=== PATIENT | male | born 1945 | race Caucasian/White ===

== ENCOUNTER → 2017-09-09 09:08 | Outpatient (CLI) | payer OTHER, SELFPAY ==
[2017-09-09 11:32] LABS: Amphetamine Urine VISTA NEGATIVE (<1000 ng/mL); Barbiturate Urine VISTA NEGATIVE (< 200 ng/mL); Benzodiazepine Urine VISTA POSITIVE (< 200 ng/mL); Cocaine Urine VISTA NEGATIVE (< 300 ng/mL); Ecstacy Urine VISTA POSITIVE (< 500 ng/mL); Methadone Urine VISTA NEGATIVE (< 300 ng/mL); PCP Urine VISTA NEGATIVE (< 25 ng/mL); THC Urine VISTA NEGATIVE (< 50 ng/mL); Vista UDS pH Range 5
== END ==
PROVIDERS: Family Provider Family Medicine; PCP Family Medicine; Visit Provider Anesthesiology Pain Medicine
DX: M51.26 Other intervertebral disc displacement, lumbar region (principal); M50.21 Other cervical disc displacement, high cervical region
CPT/HCPCS: 80307

== ENCOUNTER → 2017-10-29 09:56 | Outpatient (CLI) | payer MEDICARE, SELFPAY ==
[2017-10-29 12:18] LABS: ALB/GLOB Ratio 0.9 RATIO (0.9-2.4); AST(SGOT) 22 U/L (15-37); Alanine Aminotransfer ALT/SGPT 28 U/L (16-61); Albumin, Serum 3.5 g/dL (3.2-5.0); Alkaline Phosphatase 83 U/L (45-117); Anion Gap 8 (5-15); BUN 22 mg/dL (7-18); BUN/Creat Ratio 17.5 RATIO (10-20); Calcium,Total 8.9 mg/dL (8.5-10.1); Chloride 108 mmol/L (98-107); Creatinine, Serum 1.26 mg/dL (0.70-1.30); EST Glomerular Filtration Rate 60 mL/min (>60); Est Glom Filt Rate - Afr Amer 72 mL/min (>60); Globulin 3.8 g/dL (2.2-4.2); Glucose 92 mg/dL (74-106); Protein, Total 7.3 g/dL (6.4-8.2); Sodium Level 145 mmol/L (136-145); T4 Free Direct 0.99 ng/dL (0.76-1.46); Thyroid Stim Hormone (TSH) 1.37 uIU/mL (0.358-3.74)
[2017-10-29 12:19] LABS: Absolute Lymphocyte Count 1.94 X10^3/ul (0.83-4.51); Absolute Neutrophil Count 3.6 X10^3/uL (2.0-7.7); Basophil# 0.02 X10^3/uL; Basophil% 0.3 % (0-1); Eosinophil# 0.27 X10^3/uL; Eosinophils% 4.2 % (0-5); Hematocrit 40.7 % (40-54); Hemoglobin 13.7 g/dl (13.0-16.5); Lymphocyte # 1.94 X10^3/ul (4.0); Lymphocyte % 29.8 % (19-41); Mean Corp Hgb Conc 33.7 g/gl (32-36); Mean Corpuscular Hgb 31.6 pg (27.0-32.0); Mean Platelet Vol. 10.4 fl (6.2-12.0); Monocyte# 0.61 X10^3/uL; Monocyte% 9.4 % (0-10); Neutrophil # 3.64 X10^3/uL (2.7-7.7); Platelet Count 201 K/mm3 (150-450); RBC Distribution Width CV 13.1 % (11.6-14.6); Red Blood Count 4.33 M/mm3 (4.6-6.2); White Blood Count 6.5 K/mm3 (4.4-11.0)
[2017-10-29 12:26] LABS: POSITIVE COUNT NO; POSITIVE DIFFERENTIAL NO; POSITIVE MORPHOLOGY NO
== END ==
PROVIDERS: Family Provider Family Medicine; PCP Family Medicine; Visit Provider Family Medicine
DX: I10 Essential (primary) hypertension (principal); M79.7 Fibromyalgia; E55.9 Vitamin D deficiency, unspecified; R53.83 Other fatigue; F41.9 Anxiety disorder, unspecified
CPT/HCPCS: 36415; 80053; 82306; 84439; 84443; 85025

== ENCOUNTER → 2018-05-19 11:41 | Outpatient (CLI) | payer OTHER, MEDICARE, SELFPAY ==
[2018-05-19 12:54] LABS: Amphetamine Urine VISTA NEGATIVE (<1000 ng/mL); Barbiturate Urine VISTA NEGATIVE (< 200 ng/mL); Benzodiazepine Urine VISTA POSITIVE (< 200 ng/mL); Cocaine Urine VISTA NEGATIVE (< 300 ng/mL); Ecstacy Urine VISTA NEGATIVE (< 500 ng/mL); Methadone Urine VISTA NEGATIVE (< 300 ng/mL); PCP Urine VISTA NEGATIVE (< 25 ng/mL); THC Urine VISTA NEGATIVE (< 50 ng/mL); Vista UDS pH Range 5
== END ==
PROVIDERS: Family Provider Family Medicine; PCP Family Medicine; Referring Provider Anesthesiology Pain Medicine; Visit Provider Anesthesiology Pain Medicine
DX: S43.92XA Sprain of unspecified parts of left shoulder girdle, initial encounter (principal); S33.9XXA Sprain of unspecified parts of lumbar spine and pelvis, initial encounter; S13.4XXA Sprain of ligaments of cervical spine, initial encounter; M51.26 Other intervertebral disc displacement, lumbar region; M50.21 Other cervical disc displacement, high cervical region; F33.9 Major depressive disorder, recurrent, unspecified; X58.XXXA Exposure to other specified factors, initial encounter; Y93.9 Activity, unspecified; Y92.9 Unspecified place or not applicable; Y99.9 Unspecified external cause status
CPT/HCPCS: 80307

== ENCOUNTER → 2019-02-18 11:21 | Outpatient (CLI) | payer OTHER, SELFPAY ==
[2019-02-18 12:51] LABS: Amphetamine Urine VISTA NEGATIVE (<1000 ng/mL); Barbiturate Urine VISTA NEGATIVE (< 200 ng/mL); Benzodiazepine Urine VISTA POSITIVE (< 200 ng/mL); Cocaine Urine VISTA NEGATIVE (< 300 ng/mL); Ecstacy Urine VISTA POSITIVE (< 500 ng/mL); Methadone Urine VISTA NEGATIVE (< 300 ng/mL); PCP Urine VISTA NEGATIVE (< 25 ng/mL); THC Urine VISTA NEGATIVE (< 50 ng/mL); Vista UDS pH Range 5
== END ==
PROVIDERS: Family Provider Family Medicine; PCP Family Medicine; Referring Provider Anesthesiology Pain Medicine; Visit Provider Anesthesiology Pain Medicine
DX: S43.92XA Sprain of unspecified parts of left shoulder girdle, initial encounter (principal); M51.26 Other intervertebral disc displacement, lumbar region; S33.9XXA Sprain of unspecified parts of lumbar spine and pelvis, initial encounter; S13.4XXA Sprain of ligaments of cervical spine, initial encounter; X58.XXXA Exposure to other specified factors, initial encounter; Y93.9 Activity, unspecified; Y92.9 Unspecified place or not applicable; Y99.9 Unspecified external cause status
CPT/HCPCS: 80307

== ENCOUNTER → 2019-06-10 09:58 | Outpatient (CLI) | payer OTHER, SELFPAY ==
--- NOTE | 2019-06-10 10:02 | RAD_ITS ---
STUDY: X-RAY - CERVICAL SPINE REASON FOR EXAM: Male, 74 years old. Pain TECHNIQUE: 4 view(s) of the cervical spine were obtained. COMPARISON: None FINDINGS: Normal anterior atlantoaxial articulation. Normal odontoid process. Normal cervical lordosis. Normal vertebral bodies with mild spurring at the endplates. Slightly narrowed mid and lower cervical disc space heights. The soft tissue structures are unremarkable. RAD/Cerv Spine 2 or 3 Views IMPRESSION: Degenerative changes of the visualized cervical spine. Electronically Signed: Bubba Talamantes DO at 23:59 EST Tel [phone], Service support ,
== END ==
PROVIDERS: Family Provider Family Medicine; PCP Family Medicine; Referring Provider Anesthesiology Pain Medicine; Visit Provider Anesthesiology Pain Medicine
DX: S13.4XXA Sprain of ligaments of cervical spine, initial encounter (principal); M50.21 Other cervical disc displacement, high cervical region; X58.XXXA Exposure to other specified factors, initial encounter; Y93.9 Activity, unspecified; Y92.9 Unspecified place or not applicable; Y99.9 Unspecified external cause status
CPT/HCPCS: 72040

== ENCOUNTER → 2020-02-15 15:06 | Outpatient (CLI) | payer OTHER, MEDICARE, SELFPAY ==
[2020-02-15 17:07] LABS: Absolute Neutrophil Count 3.5 X10^3/uL (2.0-7.7); Basophil# 0.05 X10^3/uL; Basophil% 0.8 % (0-1); Eosinophil# 0.33 X10^3/uL; Hematocrit 45.1 % (40-54); Hemoglobin 15.2 g/dL (13.0-16.5); Lymphocyte % 34.6 % (19-41); Mean Corp Hgb Conc 33.7 g/dL (32-36); Mean Corpuscular Hgb 31.1 pg (27.0-32.0); Mean Corpuscular Volume 92.4 fL (80-94); Mean Platelet Vol. 10.6 fl (6.2-12.0); Monocyte# 0.48 X10^3/uL; Monocyte% 7.2 % (0-10); NRBC Flagged by Analyzer 0 % (0-5); Neutrophil # 3.46 X10^3/uL (2.7-7.7); Neutrophil % 52.1 % (47-70); Platelet Count 223 K/mm3 (150-450); RBC Distribution Width CV 12.5 % (11.6-14.6); RBC Distribution Width SD 42.3 fl (35.1-43.9); Red Blood Count 4.88 M/mm3 (4.6-6.2); White Blood Count 6.6 K/mm3 (4.4-11.0)
[2020-02-15 17:29] LABS: Anion Gap 8 (5-15); BUN 21 mg/dL (7-18); BUN/Creat Ratio 23.3 RATIO (10-20); Calcium,Total 8.9 mg/dL (8.5-10.1); Chloride 104 mmol/L (98-107); EST Glomerular Filtration Rate 88 mL/min (>60); Est Glom Filt Rate - Afr Amer 106 mL/min (>60); Glucose 93 mg/dL (74-106); Potassium 3.8 mmol/L (3.5-5.1); Sodium Level 139 mmol/L (136-145)
== END ==
PROVIDERS: PCP Family Medicine; Visit Provider Family Medicine
DX: I10 Essential (primary) hypertension (principal); F41.9 Anxiety disorder, unspecified
CPT/HCPCS: 36415; 80048; 84443; 85025

== ENCOUNTER → 2020-02-17 08:59 | Outpatient (CLI) | payer OTHER, MEDICARE, SELFPAY ==
[2020-02-17 09:53] LABS: Amphetamine Urine VISTA NEGATIVE (<1000 ng/mL); Barbiturate Urine VISTA NEGATIVE (< 200 ng/mL); Benzodiazepine Urine VISTA POSITIVE (< 200 ng/mL); Cocaine Urine VISTA NEGATIVE (< 300 ng/mL); Ecstacy Urine VISTA POSITIVE (< 500 ng/mL); Methadone Urine VISTA NEGATIVE (< 300 ng/mL); PCP Urine VISTA NEGATIVE (< 25 ng/mL); THC Urine VISTA NEGATIVE (< 50 ng/mL); Vista UDS pH Range 7
== END ==
PROVIDERS: PCP Family Medicine; Referring Provider Anesthesiology Pain Medicine; Visit Provider Anesthesiology Pain Medicine
DX: F11.20 Opioid dependence, uncomplicated (principal)
CPT/HCPCS: 36415; 80307

== ENCOUNTER → 2020-07-06 09:26 | Outpatient (CLI) | payer MEDICARE, OTHER, SELFPAY ==
[2020-07-06 10:25] LABS: Amphetamine Urine VISTA NEGATIVE (<1000 ng/mL); Barbiturate Urine VISTA NEGATIVE (< 200 ng/mL); Benzodiazepine Urine VISTA POSITIVE (< 200 ng/mL); Cocaine Urine VISTA NEGATIVE (< 300 ng/mL); Ecstacy Urine VISTA POSITIVE (< 500 ng/mL); Methadone Urine VISTA NEGATIVE (< 300 ng/mL); PCP Urine VISTA NEGATIVE (< 25 ng/mL); THC Urine VISTA NEGATIVE (< 50 ng/mL); Vista UDS pH Range 5
== END ==
PROVIDERS: PCP Family Medicine; Referring Provider Anesthesiology Pain Medicine; Visit Provider Anesthesiology Pain Medicine
DX: F11.20 Opioid dependence, uncomplicated (principal)
CPT/HCPCS: 80307

== ENCOUNTER → 2020-11-23 09:18 | Outpatient (CLI) | payer OTHER, MEDICARE, SELFPAY ==
[2020-11-23 10:21] LABS: Amphetamine Urine VISTA NEGATIVE (<1000 ng/mL); Barbiturate Urine VISTA NEGATIVE (< 200 ng/mL); Benzodiazepine Urine VISTA POSITIVE (< 200 ng/mL); Cocaine Urine VISTA NEGATIVE (< 300 ng/mL); Ecstacy Urine VISTA POSITIVE (< 500 ng/mL); Methadone Urine VISTA NEGATIVE (< 300 ng/mL); PCP Urine VISTA NEGATIVE (< 25 ng/mL); THC Urine VISTA NEGATIVE (< 50 ng/mL); Vista UDS pH Range 5
== END ==
PROVIDERS: PCP Family Medicine; Referring Provider Anesthesiology Pain Medicine; Visit Provider Anesthesiology Pain Medicine
DX: F11.20 Opioid dependence, uncomplicated (principal)
CPT/HCPCS: 80307

== ENCOUNTER 2021-05-10 09:46 | Outpatient (CLI) | payer OTHER, MEDICARE, SELFPAY ==
[2021-05-10 10:55] LABS: Amphetamine Urine VISTA NEGATIVE (<1000 ng/mL); Barbiturate Urine VISTA NEGATIVE (< 200 ng/mL); Benzodiazepine Urine VISTA POSITIVE (< 200 ng/mL); Cocaine Urine VISTA NEGATIVE (< 300 ng/mL); Ecstacy Urine VISTA POSITIVE (< 500 ng/mL); Methadone Urine VISTA NEGATIVE (< 300 ng/mL); PCP Urine VISTA NEGATIVE (< 25 ng/mL); THC Urine VISTA NEGATIVE (< 50 ng/mL); Vista UDS pH Range 5
== END 2021-05-10 23:59 | disposition home or self-care (01) ==
PROVIDERS: PCP Family Medicine; Referring Provider Anesthesiology Pain Medicine; Visit Provider Anesthesiology Pain Medicine
DX: S43.402A Unspecified sprain of left shoulder joint, initial encounter (principal); F33.9 Major depressive disorder, recurrent, unspecified; S13.4XXA Sprain of ligaments of cervical spine, initial encounter; S33.9XXA Sprain of unspecified parts of lumbar spine and pelvis, initial encounter; M51.26 Other intervertebral disc displacement, lumbar region
CPT/HCPCS: 80307

== ENCOUNTER → 2022-02-21 | Outpatient (CLI) | payer OTHER, MEDICARE, SELFPAY ==
[2022-02-21 09:55] LABS: Amphetamine Urine VISTA NEGATIVE (<1000 ng/mL); Barbiturate Urine VISTA NEGATIVE (< 200 ng/mL); Benzodiazepine Urine VISTA POSITIVE (< 200 ng/mL); Cocaine Urine VISTA NEGATIVE (< 300 ng/mL); Ecstacy Urine VISTA NEGATIVE (< 500 ng/mL); Methadone Urine VISTA NEGATIVE (< 300 ng/mL); PCP Urine VISTA NEGATIVE (< 25 ng/mL); THC Urine VISTA NEGATIVE (< 50 ng/mL); Vista UDS pH Range 6
== END | disposition home or self-care (01) ==
PROVIDERS: PCP Family Medicine; Visit Provider Anesthesiology Pain Medicine
DX: S43.92XA Sprain of unspecified parts of left shoulder girdle, initial encounter (principal); S13.4XXA Sprain of ligaments of cervical spine, initial encounter; X58.XXXA Exposure to other specified factors, initial encounter; Y99.0 Civilian activity done for income or pay
CPT/HCPCS: 80307

== ENCOUNTER 2022-09-05 09:44 | Outpatient (CLI) | payer OTHER, SELFPAY ==
[2022-09-05 11:28] LABS: Amphetamine Urine VISTA NEGATIVE (<1000 ng/mL); Barbiturate Urine VISTA NEGATIVE (< 200 ng/mL); Benzodiazepine Urine VISTA POSITIVE (< 200 ng/mL); Cocaine Urine VISTA NEGATIVE (< 300 ng/mL); Ecstacy Urine VISTA POSITIVE (< 500 ng/mL); Methadone Urine VISTA NEGATIVE (< 300 ng/mL); PCP Urine VISTA NEGATIVE (< 25 ng/mL); THC Urine VISTA NEGATIVE (< 50 ng/mL); Vista UDS pH Range 5
== END 2022-09-05 23:59 | disposition home or self-care (01) ==
PROVIDERS: PCP Family Medicine; Referring Provider Anesthesiology Pain Medicine; Visit Provider Anesthesiology Pain Medicine
DX: S43.92XA Sprain of unspecified parts of left shoulder girdle, initial encounter (principal); F33.9 Major depressive disorder, recurrent, unspecified; S13.4XXA Sprain of ligaments of cervical spine, initial encounter; S13.9XXA Sprain of joints and ligaments of unspecified parts of neck, initial encounter; M51.26 Other intervertebral disc displacement, lumbar region
CPT/HCPCS: 80307

== ENCOUNTER → 2023-03-05 | Outpatient (CLI) | payer MEDICARE, SELFPAY ==
[2023-03-05 17:37] LABS: Absolute Lymphocyte Count 1.92 X10^3/uL (0.83-4.51); Absolute Neutrophil Count 4.2 X10^3/uL (2.0-7.7); Basophil# 0.04 X10^3/uL; Basophil% 0.6 % (0-1); Eosinophil# 0.27 X10^3/uL; Eosinophils% 3.9 % (0-5); Hematocrit 40.5 % (40-54); Hemoglobin 13.9 g/dL (13.0-16.5); Lymphocyte # 1.92 X10^3/ul (0.83-4.51); Lymphocyte % 27.7 % (19-41); Mean Corp Hgb Conc 34.3 g/dL (32-36); Mean Corpuscular Hgb 32.3 pg (27.0-32.0); Mean Platelet Vol. 10.4 fl (6.2-12.0); Monocyte# 0.47 X10^3/uL; Monocyte% 6.8 % (0-10); NRBC Flagged by Analyzer 0 % (0-5); Neutrophil # 4.19 X10^3/uL (2.7-7.7); Neutrophil % 60.6 % (47-70); Platelet Count 216 K/mm3 (150-450); RBC Distribution Width CV 13.2 % (11.6-14.6); RBC Distribution Width SD 45.2 fl (35.1-43.9); Red Blood Count 4.31 M/mm3 (4.6-6.2); White Blood Count 6.9 K/mm3 (4.4-11.0)
[2023-03-05 17:47] LABS: Erythrocyte Sedimentation Rate 13 mm/hr (0-20)
[2023-03-05 17:48] LABS: D-Dimer Quantitative (DVT/PE) 0.38 FEU/ug/m (0.27-0.49)
[2023-03-05 17:58] LABS: AST(SGOT) 21 U/L (15-37); Alanine Aminotransfer ALT/SGPT 31 U/L (16-61); Albumin, Serum 3.6 g/dL (3.2-5.0); Alkaline Phosphatase 84 U/L (45-117); Anion Gap 5 (5-15); BUN 17 mg/dL (7-18); BUN/Creat Ratio 16.2 RATIO (10-20); CPK Total, Creatine Kinase 94 U/L (39-308); Calcium,Total 9.1 mg/dL (8.5-10.1); Chloride 108 mmol/L (98-107); Creatinine, Serum 1.05 mg/dL (0.70-1.30); EST Glomerular Filtration Rate 73 mL/min (>60); Est Glom Filt Rate - Afr Amer 88 mL/min (>60); Globulin 3.5 g/dL (2.2-4.2); Glucose 105 mg/dL (74-106); Potassium 3.6 mmol/L (3.5-5.1); Protein, Total 7.1 g/dL (6.4-8.2); Sodium Level 140 mmol/L (136-145); Troponin-I HS 9 pg/mL (3.0-78.0)
== END | disposition home or self-care (01) ==
LOC: BFHLAB 15:52
PROVIDERS: PCP Family Medicine; Referring Provider Family Medicine; Visit Provider Family Medicine
DX: R06.09 Other forms of dyspnea (principal); R07.89 Other chest pain; R53.1 Weakness
CPT/HCPCS: 36415; 80053; 82550; 84484; 85025; 85379; 85652

== ENCOUNTER → 2023-04-11 | Outpatient (CLI) | payer MEDICARE, SELFPAY ==
--- NOTE | 2023-04-11 18:12 | STRESSREP ---
Stress Test Report Pharmacologic myocardial perfusion stress test. 78-year-old man with a history of shortness of breath Resting EKG demonstrates sinus rhythm with a rate of 62 bpm. Resting blood pressure is 122/80 mmHg. 0.4 mg of regadenoson was infused per usual protocol followed by rapid intravenous saline flush injection. Continuous EKG monitoring was performed. The maximum heart rate was 84 bpm which was 58% of max impacted heart rate the maximum workload was 1 metabolic equivalent. At rest there were no ST or T wave changes noted to suggest ischemia and at peak infusion nonspecific ST changes were noted which did not meet the criteria for ischemia. No clinical angina is noted. The final blood pressure was 122/70 mmHg. Myocardial perfusion protocol. 14.2 mCi of technetium 99m sestamibi was injected at rest. 0.4 mg of regadenoson was infused per usual protocol. At peak infusion 44.5 mCi of technetium 99m sestamibi was injected stress images were obtained stress and rest images were reconstructed and compared in the short axis vertical long and horizontal long axis. Gated images were also obtained. Perfusion SPECT analysis: Review of the stress images demonstrate normal uptake of tracer noted in all areas of the myocardium. The resting images similar demonstrated normal uptake of tracer noted in all areas of the myocardium. No areas of reversibility are noted to suggest ischemia and no previous infarct is noted. Gated SPECT analysis: The gated ejection fraction is 50%. Conclusion: Normal pharmacologic myocardial perfusion stress test. Low normal ejection fraction.
== END | disposition home or self-care (01) ==
LOC: CVS 06:53
PROVIDERS: PCP Family Medicine; Referring Provider Family Medicine; Visit Provider Family Medicine
DX: R06.09 Other forms of dyspnea (principal); R07.89 Other chest pain
CPT/HCPCS: 78452; 93017; A9500; A4216; J2785

== ENCOUNTER → 2023-05-06 | Outpatient (CLI) | payer MEDICARE, SELFPAY ==
[2023-05-06 16:43] LABS: Vitamin B12 337 pg/mL (211-911)
[2023-05-06 16:49] LABS: T4 Free Direct 1.03 ng/dL (0.76-1.46)
== END | disposition home or self-care (01) ==
LOC: BFHLAB 14:08
PROVIDERS: PCP Family Medicine; Referring Provider Family Medicine; Visit Provider Family Medicine
DX: R53.83 Other fatigue (principal); R53.1 Weakness
CPT/HCPCS: 36415; 82607; 84439; 84443

== ENCOUNTER → 2023-10-14 | Outpatient (CLI) | payer MEDICARE, SELFPAY ==
[2023-10-14 12:36] LABS: Erythrocyte Sedimentation Rate 5 mm/hr (0-20)
[2023-10-14 12:39] LABS: Absolute Lymphocyte Count 1.65 X10^3/uL (0.83-4.51); Absolute Neutrophil Count 2.8 X10^3/uL (2.0-7.7); Basophil# 0.08 X10^3/uL; Basophil% 1.6 % (0-1); Eosinophil# 0.15 X10^3/uL; Eosinophils% 2.9 % (0-5); Hematocrit 42.3 % (40-54); Hemoglobin 14.3 g/dL (13.0-16.5); Lymphocyte # 1.65 X10^3/ul (0.83-4.51); Mean Corp Hgb Conc 33.8 g/dL (32-36); Mean Corpuscular Hgb 31.4 pg (27.0-32.0); Mean Corpuscular Volume 92.8 fL (80-94); Mean Platelet Vol. 10.1 fl (6.2-12.0); Monocyte# 0.46 X10^3/uL; Monocyte% 8.9 % (0-10); NRBC Flagged by Analyzer 0 % (0-5); Neutrophil # 2.81 X10^3/uL (2.7-7.7); Neutrophil % 54.4 % (47-70); Platelet Count 222 K/mm3 (150-450); RBC Distribution Width SD 44.4 fl (35.1-43.9); Red Blood Count 4.56 M/mm3 (4.6-6.2); White Blood Count 5.2 K/mm3 (4.4-11.0)
[2023-10-14 13:33] LABS: AST(SGOT) 20 U/L (15-37); Alanine Aminotransfer ALT/SGPT 23 U/L (16-61); Albumin, Serum 3.5 g/dL (3.2-5.0); Alkaline Phosphatase 72 U/L (45-117); Anion Gap 7 (5-15); BUN 18 mg/dL (7-18); BUN/Creat Ratio 17.5 RATIO (10-20); CPK Total, Creatine Kinase 137 U/L (39-308); CRP < 2.90 mg/L (0.0-3.0); Calcium,Total 9.1 mg/dL (8.5-10.1); Chloride 104 mmol/L (98-107); Creatinine, Serum 1.03 mg/dL (0.70-1.30); EST Glomerular Filtration Rate 74 mL/min (>60); Est Glom Filt Rate - Afr Amer 90 mL/min (>60); Globulin 3.5 g/dL (2.2-4.2); Glucose 88 mg/dL (74-106); Potassium 3.8 mmol/L (3.5-5.1); Sodium Level 139 mmol/L (136-145); Thyroid Stim Hormone (TSH) 1.21 uIU/mL (0.358-3.74)
== END | disposition home or self-care (01) ==
LOC: BFHLAB 09:06
PROVIDERS: PCP Family Medicine; Visit Provider Family Medicine
DX: I10 Essential (primary) hypertension (principal); I49.9 Cardiac arrhythmia, unspecified; R53.83 Other fatigue; R53.1 Weakness
CPT/HCPCS: 36415; 80053; 82533; 82550; 84443; 85025; 85652; 86140

== ENCOUNTER → 2023-10-22 | Outpatient (CLI) | payer MEDICARE, SELFPAY ==
--- NOTE | 2023-10-22 13:05 | MRI_ITS ---
STUDY: MRI BRAIN WITH AND WITHOUT CONTRAST REASON FOR EXAM: Male, 78 years old. TREMOR, VERTIGO, GAIT DYSFUNCTION TECHNIQUE: Standardized multiplanar fat and water weighted pulse sequences were obtained. IV 20ml clariscan was administered for the contrast portion of the examination. COMPARISON: None. FINDINGS: There is moderate cerebral atrophy with widening of the extra-axial spaces and ventricular dilatation. There are multiple white matter hyperintensities, distributed throughout the deep white matter tracts of the cerebral hemispheres, consistent with moderate chronic white matter ischemic changes. There is no evidence for recent intracranial ischemia or other cause of cytotoxic edema on diffusion weighted imaging (DWI). There are prominent perivascular spaces (PVS) involving the basal ganglia. Normal thalami. There is no extra-axial fluid accumulation. Normal flow voids within the major intracranial circulation suggesting patency by spin echo criteria. Normal venous enhancement. There is no enhancing intra-axial or extra-axial abnormality. Normal sella turcica, pituitary gland, infundibular stalk, optic chiasm and hypothalamus. Normal tectal plate and pineal gland. Normal midbrain, janessa and medulla. Normal cerebellum. Normal basal cisterns. Normal bilateral temporal bones. Normal bilateral internal auditory canals. No demonstrated orbital abnormality, within the constraints of a routine brain study. Normal visualized paranasal sinuses. Normal calvarium and skull base. Normal visualized soft tissue structures. Normal visualized upper cervical spine. MRI/Brain W/WO Contrast IMPRESSION: Chronic involutional changes. No acute disease. Electronically Signed: Jonathan Devine MD at 0:18 EDT ,
== END | disposition home or self-care (01) ==
PROVIDERS: PCP Family Medicine; Referring Provider Family Medicine; Visit Provider Family Medicine
DX: R42 Dizziness and giddiness (principal); R26.9 Unspecified abnormalities of gait and mobility
CPT/HCPCS: 70553; A9575

== ENCOUNTER → 2024-01-29 | Outpatient (CLI) | payer OTHER, SELFPAY ==
--- NOTE | 2024-01-29 06:52 | CT_ITS ---
STUDY: CT CHEST, ABDOMEN T PELVIS WITH CONTRAST REASON FOR EXAM: Male, 79 years old. ABNORMAL WEIGHT LOSS RADIATION DOSAGE (If Supplied By Facility): CTDIvol = ( 23.47 ) mGy, DLP = ( 2343.72 ) mGycm TECHNIQUE: Transaxial imaging was performed following intravenous administration of IV 100mL Isovue-370. Individualized dose optimization techniques were used for this CT. COMPARISON: No relevant priors. FINDINGS: CHEST There is heterogeneous enlargement of the right lobe of the thyroid gland suggestive of a goiter is unchanged. There is elevation of the right hemidiaphragm with linear atelectasis and/or scarring at the right lung base. There is no demonstrated pleural abnormality. There are calcifications of the coronary arteries. Calcified precarinal lymph node. Normal hilar regions. Normal unenhanced pulmonary arteries. Normal aorta arch and descending thoracic aorta. There are multi-level degenerative changes of the thoracic spine. ABDOMEN Normal liver. Normal gallbladder and extrahepatic biliary system. There are multiple benign calcified granulomata of the spleen. Normal pancreas. Normal bilateral adrenal glands. There is a 1.6 cm cyst in the posterior midportion of the right kidney. Normal left kidney. Normal visualized stomach. Normal small intestine. Normal colon. The appendix is visualized and appears normal. There is scattered atherosclerotic calcification of the abdominal aorta, without a demonstrated aneurysm. Normal inferior vena cava. Normal retroperitoneum. There is evidence of prior ventral hernia repair with mesh. Prior laminectomy and fusion at the L4-L5 level. Mild degree of disc space narrowing. PELVIS Small caliber urinary bladder with diffuse bladder wall thickening. Diffuse heterogeneous enlargement of the prostate with prosthetic calcifications. There is indentation at the bladder base. There is diffuse atherosclerotic calcification of the pelvic arteries. CT/CT Chest, Abd, Pel w/Contrast IMPRESSION: Heterogeneous enlargement of the prostate with indentation of the bladder base. Diffuse bladder wall thickening. Electronically Signed: Ramiro Kaye MD at 15:13 EDT ,
== END | disposition home or self-care (01) ==
LOC: CT 06:41
PROVIDERS: PCP Family Medicine; Referring Provider Internal Medicine; Visit Provider Internal Medicine
DX: R63.4 Abnormal weight loss (principal)
CPT/HCPCS: 71260; 74177; Q9967; A4216

== ENCOUNTER → 2025-04-16 | Outpatient (CLI) | payer OTHER, SELFPAY | END | disposition home or self-care (01) | LOC: MTRAD 09:30 | PROVIDERS: PCP Family Medicine; Referring Provider Family Medicine; Visit Provider Family Medicine | DX: M79.604 Pain in right leg (principal) | CPT/HCPCS: 73502 ==